=== PATIENT | male | born 1950 | race Caucasian/White ===

== ENCOUNTER → 2019-07-02 07:26 | Outpatient (CLI) | payer MEDICARE, SELFPAY ==
[2019-07-02 07:58] LABS: Add Manual Diff / Slide Review NO; Basophils Absolute Auto 100 /uL (0-100); Eosinophils Absolute Auto 100 /uL (0-450); Eosinophils Percent Auto 2.3 % (2-4); Hematocrit 43.4 % (41-53); Hemoglobin 14.8 g/dL (13.5-17.5); Lymphocytes Absolute Auto 1400 /uL (1100-4500); Mean Corpuscular HGB Conc 34.1 % (30-36); Mean Corpuscular Hemoglobin 31.2 PG (26-34); Mean Corpuscular Volume 91.4 fL (80-100); Monocytes Absolute Auto 400 /uL (0-900); Monocytes Percent Auto 8.5 % (3-14); Neutrophils Absolute Auto 3100 /uL (1500-7000); Neutrophils Percent Auto 61.2 % (50-75); Platelet Count 167 X10^3/uL (150-400); Red Blood Cell Count 4.75 X10^6/uL (4.5-5.9); Red Cell Distribution Width 13.6 % (11.6-14.8); White Blood Cell Count 5.1 X10^3/uL (4.5-11.0)
[2019-07-02 08:30] LABS: Hemoglobin A1C% w Est Avg Glu 5.1 % (4.0-6.0)
[2019-07-02 08:32] LABS: Alanine Aminotransferase 22 IU/L (<50); Albumin 4.1 g/dL (3.5-5.0); Albumin Globulin Ratio 1.5 (1.0-2.8); Alkaline Phosphatase 56 U/L (38-126); Aspartate Aminotransferase 29 IU/L (17-59); BUN Creatinine Ratio 26.3 (6-22); Bilirubin Total 0.8 mg/dL (0.2-1.3); Blood Urea Nitrogen 21 mg/dL (9-20); Calcium 9.5 mg/dL (8.4-10.2); Carbon Dioxide 30 mmol/L (22-32); Chloride 104 mmol/L (98-107); Cholesterol 161 mg/dL (140-199); Estimated Glomerular Filt Rate > 60.0 mL/min (>60); Globulin 2.8 g/dL (1.7-4.1); Glucose 95 mg/dL (80-110); HDL Cholesterol 72 mg/dL (40-60); HEMOLYSIS < 15 (0-50); LDL Cholesterol Calculated 73 mg/dL (<100); Potassium 4.2 mmol/L (3.4-5.1); Sodium 141 mmol/L (137-145); Total Protein 6.9 g/dL (6.3-8.2); Triglycerides 82 mg/dL (35-150)
[2019-07-02 09:01] LABS: Prostate Specific Antigen Scrn 2.97 ng/mL (0.1-4.0)
== END ==
PROVIDERS: Family Provider Internal Medicine; PCP Family Medicine; Referring Provider Family Medicine; Visit Provider Family Medicine
DX: Z76.89 Persons encountering health services in other specified circumstances (principal); Z12.5 Encounter for screening for malignant neoplasm of prostate
CPT/HCPCS: 36415; 80053; 80061; 83036; 85025; G0103

== ENCOUNTER → 2020-02-29 06:49 | Outpatient (CLI) | payer MEDICARE, SELFPAY ==
--- NOTE | 2020-02-29 06:50 | DI.ECHO.S_ITS ---
[facility]---------+ [facility] +---------+ : : [address] : : : : [place], [place] : : : : [id number] : : : : Phone: [phone]---------+ Echocardiogram Report + + :Name: MANUEL URIAS Study Date: 02/29/2020 Height: 69 in : :[facility] Exam Location: [facility] Weight: 160 lb : : Gender: Male BSA: 1.9 m2 : :: 1950 Age: 70 yrs BP: 142/62 mmHg: :Reason For Study: Aortic valve stenosis : : Performed By: Betty Page : + + Interpretation Summary 1) Normal left ventricular thickness, size, wall motion, and systolic function (EF 60-65%). 2) Normal right ventricular size and function. 3) Severe enlarged left atrium. 4) Moderate-severe aortic stenosis present (valve area 1.0cm2, mean gradient 33mmHg, severity ratio 0.23). 5) There is mild to moderate aortic regurgitation. 6) Compared to the Echo done 05/26/2017, aortic stenosis has progressed from moderate to moderate-severe on this study. Procedure: A two-dimensional transthoracic echocardiogram with color flow and Doppler was performed. The study quality was technically adequate. Comparison is made with the echocardiogram of 05/26/2017. The patient was in sinus bradycardia with heart rates between 47-57 bpm during the exam. Left Ventricle: The left ventricle appears normal in size, wall thickness, and systolic function without any focal wall motion abnormalities. The estimated left ventricular end diastolic volume is 137 ml. The ejection fraction is estimated to be 60-65%. Right Ventricle: The right ventricle is normal size. The right ventricular systolic function is normal. Atria: The left atrium is severely dilated. The left atrium has significantly increased in size since the prior echo exam. The right atrium is mild to moderately dilated. There is no Doppler evidence for an interatrial shunt. Mitral Valve: The mitral valve is normal in structure and function. There is mild mitral annular calcification. There is trace mitral regurgitation. Aortic Valve: There is moderate aortic valve sclerosis. The peak aortic velocity is 3.7 m/sec. The peak aortic velocity on the previous exam was 3.7 m/sec. The calculated aortic valve area is 1.0 cm2. The aortic valve mean gradient is 33.3 mmHg. The aortic valve area is 1.4 centimeters squared by planimetry. There is moderate to severe aortic stenosis. There is mild to moderate aortic regurgitation. Tricuspid Valve: The tricuspid valve is normal in structure and function. There is a trace or physiologic amount of tricuspid regurgitation. The right ventricular systolic pressure is estimated to be at least 26 mmHg based on an estimated right atrial pressure of 3 mm Hg. Pulmonic Valve: The pulmonic valve is not well seen, but is grossly normal. There is a trace or physiologic amount of pulmonic regurgitation. Great Vessels: The aortic root is normal size. The ascending aorta is at the upper limits of normal in size. The pulmonary artery is not well visualized, but is probably normal size. The IVC is of normal diameter and collapses greater than 50% with a sniff. This suggests a low right atrial pressure of 3 mm Hg. Pericardium/ Pleura There is no pericardial effusion. There is no pleural effusion. MMode/2D Measurements & Calculations LVIDd: 5.0 cm LVOT diam: 2.3 cm LVIDs: 3.0 cm Ao root diam: 3.7 cm FS: 39.2 % asc Aorta Diam: 3.8 cm IVSd: 0.87 cm LVPWd: 0.76 cm LV sibley. diameter/BSA (cm/m^2): 2.6 LV sys. diameter/BSA (cm/m^2): 1.6 LA A2 area: 33.8 cm2 RA long axis: 5.5 cm LA A4 area: 29.7 cm2 RA area: 22.1 cm2 LA length (vol): 6.0 cm RA vol: 76.1 ml LA vol: 141.0 ml RA : 40.5 ml/m2 LA vol index: 75.1 ml/m2 IVC diam: 1.8 cm RVD1 (basal): 4.8 cm TAPSE: 2.9 cm Doppler Measurements & Calculations Ao V2 max: 365.8 cm/sec LVOT Max Nitish: 94.6 cm/sec Ao V2 mean: 279.1 cm/sec LV V1 max P.6 mmHg Ao max P.5 mmHg LV V1 VTI: 22.4 cm Ao mean P.3 mmHg BOO(I,D): 0.92 cm2 Ao V2 VTI: 98.8 cm BOO(V,D): 1.0 cm2 sev ratio: 0.23 BOO indexed to BSA (cm^2/m^2): 0.49 AI P1/2t: 675.7 msec AI dec slope: 206.2 cm/sec2 MV E max nitish: 59.1 cm/sec TR max nitish: 240.6 cm/sec MV A max nitish: 89.3 cm/sec TR max P.2 mmHg MV E/A: 0.66 Med Peak E' Nitish: 5.8 cm/sec E/E' med: 10.2 Lat Peak E' Nitish: 7.7 cm/sec E/E' lat: 7.7 E/e' average: 9.0 MV P1/2t: 65.7 msec MV P1/2t max nitish: 58.5 cm/sec SV(LVOT): 90.5 ml MVA(P1/2t): 3.4 cm2 Reading Physician:10:27 AM
--- NOTE | 2020-02-29 06:50 | DI.US.S_ITS ---
PROCEDURE: US CAROTID DOPPLER BI INDICATIONS: HISTORY OF AORTIC STENOSIS AND INCREASING EXERTIONAL FATIGUE TECHNIQUE: Color and pulse Doppler interrogation was performed of both carotid systems, with image documentation and velocity measurements. COMPARISON: Outside Facility, [facility], US CAROTID DOPPLER, 08/04/2018, 15:59. FINDINGS: Stenosis calculations are based on SRU (Society of Radiologists in Ultrasound) criteria. Right side: Brachial blood pressure: 125/68 mm Hg. Common carotid artery peak systolic velocity: 77 cm/sec. Internal carotid artery peak systolic velocity: 139 cm/sec. Internal carotid artery end diastolic velocity: 35 cm/sec. External carotid artery peak systolic velocity: 61 cm/sec. ICA/CCA peak systolic ratio: 1.8 . Lai scale imaging description: Calcified atherosclerotic plaque. Percent internal carotid artery stenosis: 50-69% stenosis . Vertebral artery: Flow direction is antegrade. Left side: Brachial blood pressure: 129/63 mm Hg. Common carotid artery peak systolic velocity: 78 cm/sec. Internal carotid artery peak systolic velocity: 245 cm/sec. Internal carotid artery end diastolic velocity: 54 cm/sec. External carotid artery peak systolic velocity: 65 cm/sec. ICA/CCA peak systolic ratio: 3.1 . Lai scale imaging description: Moderate scattered plaque. Percent internal carotid artery stenosis: 70% stenosis to near occlusion . Vertebral artery: Flow direction is antegrade. IMPRESSION: 1. Stable 70% stenosis to near occlusion of the left internal carotid artery. 2. Stable 50-69% right internal carotid artery stenosis. Dictated by: Uzair DAVILA Interpreted: Douglas Salas MD on 02/29/2020 at 16:19 Approved by: Douglas Salas M.D. on 02/29/2020 at 16:40
== END ==
PROVIDERS: Family Provider Internal Medicine; PCP Family Medicine; Referring Provider Family Medicine; Visit Provider Family Medicine
DX: I35.2 Nonrheumatic aortic (valve) stenosis with insufficiency (principal); I65.23 Occlusion and stenosis of bilateral carotid arteries
CPT/HCPCS: 93306; 93880

== ENCOUNTER → 2020-05-30 07:00 | Outpatient (CLI) | payer MEDICARE, SELFPAY ==
[2020-05-30 09:24] LABS: BUN Creatinine Ratio 32.1 (6-22); Blood Urea Nitrogen 25 mg/dL (9-20); Calcium 9.4 mg/dL (8.4-10.2); Carbon Dioxide 33 mmol/L (22-32); Chloride 104 mmol/L (98-107); Estimated Glomerular Filt Rate > 60.0 mL/min (>60); Glucose 93 mg/dL (80-110); HEMOLYSIS < 15 (0-50); Potassium 4.5 mmol/L (3.4-5.1); Sodium 138 mmol/L (137-145)
== END ==
PROVIDERS: Family Provider Internal Medicine; PCP Family Medicine; Referring Provider Internal Medicine Cardiovascular Disease; Visit Provider Internal Medicine Cardiovascular Disease
DX: I10 Essential (primary) hypertension (principal)
CPT/HCPCS: 36415; 80048

== ENCOUNTER → 2020-06-02 12:42 | Outpatient (CLI) | payer MEDICARE, SELFPAY ==
--- NOTE | 2020-06-02 13:03 | DI.CT.S_ITS ---
PROCEDURE: CT ANGIO NECK INDICATIONS: Unspecified retinal vascular occlusion TECHNIQUE: After the administration of intravenous contrast, 1.5 mm axial sections acquired from the aortic arch to the [place]. Maximum intensity projection (MIP) reformats were then performed. COMPARISON: [facility], , CAROTID DOPPLER BI, 02/29/2020, 8:21. FINDINGS: Image quality: Excellent. Carotid system: The great vessels demonstrate a conventional anatomy as they arise from the aortic arch. The origins of the common carotid arteries appear patent. The common carotid arteries demonstrate normal calibers and courses. The bifurcation regions appear normal bilaterally. There is a proximal left internal carotid artery stenosis which measures 70%. There is a calcified proximal right internal carotid artery stenosis which measures approximately 50%. Posterior circulation: The origins of the vertebral arteries appear patent. The left vertebral artery is dominant. The distal vertebral artery is quite diminutive. They join to form a normal appearing basilar artery. Soft tissues: Visualized neck soft tissues demonstrate no suspicious abnormalities. Thyroid gland is unremarkable as visualized.. Bones: No suspicious bony lesions. Visualized cervical spine appears normally aligned. IMPRESSION: 1. 70% proximal left internal carotid artery stenosis. 2. Calcified proximal right internal carotid artery stenosis is approximately 50%. Any quantitative stenosis measurements were performed using the NASCET criteria. Dictated by: dAolfo Steele M.D. on 06/02/2020 at 14:12 Approved by: Adolfo Steele M.D. on 06/02/2020 at 14:29
== END ==
PROVIDERS: Family Provider Internal Medicine; PCP Family Medicine; Referring Provider Family Medicine; Visit Provider Internal Medicine Cardiovascular Disease
DX: I65.23 Occlusion and stenosis of bilateral carotid arteries (principal); H34.9 Unspecified retinal vascular occlusion
CPT/HCPCS: 70498; Q9967

== ENCOUNTER → 2020-06-11 08:47 | Outpatient (CLI) | payer MEDICARE, SELFPAY ==
[2020-06-11] MEDS: COVID-19 VACC #1, MRNA(MOD) 100 MCG/0.5 ML VIAL IM (08:51)
== END ==
PROVIDERS: Family Provider Internal Medicine; PCP Family Medicine; Visit Provider Internal Medicine
DX: Z23 Encounter for immunization (principal)
CPT/HCPCS: 0011A; 91301

== ENCOUNTER → 2020-07-09 07:43 | Outpatient (CLI) | payer MEDICARE, SELFPAY ==
[2020-07-09] MEDS: COVID-19 VACC #2, MRNA(MOD) 100 MCG/0.5 ML VIAL IM (07:47)
== END ==
PROVIDERS: Family Provider Internal Medicine; Visit Provider Internal Medicine
DX: Z23 Encounter for immunization (principal)
CPT/HCPCS: 0012A; 91301

== ENCOUNTER → 2020-09-01 10:32 | Outpatient (CLI) | payer MEDICARE, SELFPAY ==
--- NOTE | 2020-09-01 10:34 | DI.RAD.S_ITS ---
PROCEDURE: XR CHEST 2V INDICATIONS: lump chest; deformed chest TECHNIQUE: 2 views of the chest were acquired. COMPARISON: None. FINDINGS: Surgical changes and devices: None. Lungs and pleura: Lungs are clear. No pleural effusions or pneumothorax. Mediastinum: Mediastinal contours are normal. Heart size is normal. Bones and chest wall: No suspicious bony abnormalities. Soft tissues appear unremarkable. IMPRESSION: No trauma found. Depending on the clinical status follow-up by CT scanning may become necessary. Dictated by: Lexa Bell M.D. on 09/01/2020 at 12:40 Approved by: Lexa Bell M.D. on 09/01/2020 at 12:41
== END ==
PROVIDERS: Family Provider Internal Medicine; PCP Family Medicine; Referring Provider Family Medicine; Visit Provider Family Medicine
DX: R22.2 Localized swelling, mass and lump, trunk (principal)
CPT/HCPCS: 71046

== ENCOUNTER → 2020-09-02 15:47 | Outpatient (CLI) | payer MEDICARE, SELFPAY ==
--- NOTE | 2020-09-02 15:49 | DI.US.S_ITS ---
LIMITED ULTRASOUND OF LEFT BREAST: 09/02/2020 CLINICAL: Palpable left breast lump. Comparisons: Chest x-ray 09/01/2020. CT neck 06/02/2020. Color flow and real-time ultrasound of the left breast 11 o'clock region were performed. Lai scale images of the real-time examination were reviewed. No mass in the region of clinical concern. No fluid collection. No hyperemia. Palpable abnormality corresponds to left upper medial rib versus costochondral junction. IMPRESSION: NEGATIVE There is no sonographic evidence of malignancy. No mass. Exam findings were conveyed to the patient. CT of the chest or bone scan could be considered for further evaluation of the bones. This exam was interpreted at Station ID: [id number]. Electronically Signed By: Stef Waddell M.D. slc/:09/02/2020 16:19:18 letter sent: Clinical Evaluation Ultrasound BI-RADS: 1 Negative
== END ==
PROVIDERS: Family Provider Internal Medicine; PCP Family Medicine; Referring Provider Registered Nurse; Visit Provider Registered Nurse
DX: N63.22 Unspecified lump in the left breast, upper inner quadrant (principal)
CPT/HCPCS: 76642

== ENCOUNTER → 2020-09-09 11:20 | Outpatient (CLI) | payer MEDICARE, SELFPAY ==
[2020-09-09 13:02] LABS: BUN Creatinine Ratio 30.1 (6-22); Blood Urea Nitrogen 22 mg/dL (9-20); Calcium 9.9 mg/dL (8.4-10.2); Carbon Dioxide 29 mmol/L (22-32); Chloride 102 mmol/L (98-107); Estimated Glomerular Filt Rate > 60.0 mL/min (>60); Glucose 89 mg/dL (80-110); HEMOLYSIS < 15 (0-50); Potassium 4.1 mmol/L (3.4-5.1); Sodium 138 mmol/L (137-145)
[2020-09-09 13:32] LABS: Prostate Specific Antigen 5.43 ng/mL (0.10-4.00)
== END ==
PROVIDERS: Student in an Organized Health Care Education/Training Program; Family Provider Internal Medicine; PCP Family Medicine; Referring Provider Urology; Visit Provider Registered Nurse
DX: Z12.5 Encounter for screening for malignant neoplasm of prostate (principal); R22.2 Localized swelling, mass and lump, trunk
CPT/HCPCS: 36415; 80048; 84153

== ENCOUNTER → 2020-09-10 15:11 | Outpatient (CLI) | payer MEDICARE, SELFPAY ==
--- NOTE | 2020-09-10 15:12 | DI.CT.S_ITS ---
PROCEDURE: CT CHEST W CON INDICATIONS: atypical mass of chest/asymmetry TECHNIQUE: After the administration of intravenous contrast, 5 mm thick sections acquired from the pulmonary apices to the posterior costophrenic angles. 1 mm axial lung, 5 mm thick coronal and sagittal reformats and 7 mm axial MIP were acquired. For radiation dose reduction, the following was used: automated exposure control, adjustment of mA and/or kV according to patient size. COMPARISON: [facility], CR, XR CHEST 2V, 09/01/2020, 10:38. FINDINGS: Lungs: Scattered chronic calcified granulomas incidentally noted. Scattered subsegmental atelectasis and/or scarring. No focal consolidation. Pleura: No pleural effusion or pneumothorax. Heart: Heart size is normal. No pericardial effusion. Moderate coronary artery calcifications. Chest nodes: Normal. Thyroid gland: Negative Aorta: Normal. Pulmonary arteries: Normal Esophagus: Normal Upper abdomen: Subcentimeter hepatic foci are statistically cysts or hemangiomas, although technically too small to characterize accurately and therefore nonspecific. Bones: Normal. IMPRESSION: Scattered subsegmental atelectasis and/or scarring. No focal consolidation. Scattered chronic calcified granulomas incidentally noted. Moderate coronary artery atherosclerosis. Additional chronic/incidental findings as above. Dictated by: Esvin Almaguer M.D. on 09/10/2020 at 16:35 Approved by: Esvin Almaguer M.D. on 09/10/2020 at 17:09
== END ==
PROVIDERS: Family Provider Internal Medicine; PCP Family Medicine; Referring Provider Registered Nurse; Visit Provider Registered Nurse
DX: R22.2 Localized swelling, mass and lump, trunk (principal); I25.10 Atherosclerotic heart disease of native coronary artery without angina pectoris
CPT/HCPCS: 71260; Q9967

== ENCOUNTER → 2020-10-09 13:53 | Outpatient (CLI) | payer MEDICARE, SELFPAY ==
--- NOTE | 2020-10-09 13:55 | DI.RAD.S_ITS ---
PROCEDURE: XR RIBS LT MIN 3V W CXR1V INDICATIONS: chest/ribs assymetry TECHNIQUE: 2 views of the left ribs were acquired, along with a single view chest. COMPARISON: None. FINDINGS: Surgical changes and devices: None. Bones and chest wall: No fractures or dislocations. No suspicious bony lesions. Overlying soft tissues appear unremarkable. Lungs and pleura: No pleural effusions or pneumothorax. Lungs appear clear. Mediastinum: Mediastinal contours appear normal. Heart size is normal. IMPRESSION: No rib fracture radiographically identified. No acute disease. Dictated by: Esvin Almaguer M.D. on 10/09/2020 at 15:52 Approved by: Esvin Almaguer M.D. on 10/09/2020 at 15:53
== END ==
PROVIDERS: Family Provider Internal Medicine; PCP Family Medicine; Referring Provider Registered Nurse; Visit Provider Registered Nurse
DX: M95.4 Acquired deformity of chest and rib (principal)
CPT/HCPCS: 71101

== ENCOUNTER → 2020-11-24 13:12 | Outpatient (CLI) | payer MEDICARE, SELFPAY ==
[2020-11-24 15:20] LABS: COVID19 -Nasal RAPID Negative (Negative)
== END ==
PROVIDERS: Family Provider Internal Medicine; PCP Family Medicine; Visit Provider Physician Assistant
DX: Z20.822 Contact with and (suspected) exposure to COVID-19 (principal)
CPT/HCPCS: 87635; C9803

== ENCOUNTER 2020-11-25 09:59 | Day surgery (SDC) | payer MEDICARE, SELFPAY ==
[2020-11-25 10:17] VITALS: BMI 22.8
[2020-11-25] MEDS: LACTATED RINGERS 1,000 ML 100 ML IV (10:24)
[2020-11-25 10:25] VITALS: BP 146/66; PULSE 54; RESP 14; TEMP 36.2; O2SAT 100
--- NOTE | 2020-11-25 12:05 | PM.HP.1 ---
History of Present Illness History of Present Illness Date Patient Seen: 11/25/20 Time Patient Seen: 12:05 Chief complaint: DX COLONOSCOPY Narrative: Personal hx of colon polyps. Asymptomatic. Patient History Medical History Anemia (~2014) Aortic stenosis Carotid stenosis Cataracts, bilateral (~2018) Hearing loss (~2012) Rib deformity Skin lesion Swelling, mass, or lump in chest Well adult Family & Social History Family History Mother Pacemaker History of heart disease Sister Breast cancer Father Congestive heart failure Cancer Social History: household members spouse Tobacco & Substance use: Smoking Status Never smoker alcohol intake current alcohol intake frequency a few times a month Substance Use Type does not use Meds Home Medications and Allergies Home Medications Medication Instructions Recorded Confirmed Type aspirin 81 mg chewable tablet 81 mg PO QDAY #0 12/18/16 11/25/20 History atorvastatin 10 mg tablet See Rx Instructions .ROUTE 02/08/20 11/25/20 Rx .COMPLEX #90 tab hydrochlorothiazide 25 mg tablet 25 mg PO QDAY #90 tab 02/08/20 11/25/20 Rx sildenafil (pulm.hypertension) 20 See Rx Instructions PO .COMPLEX 02/08/20 11/25/20 Rx mg tablet PRN #30 tab Allergies Allergy/AdvReac Type Severity Reaction Status Date / Time No Known Drug Allergies Allergy Verified 03/05/20 08:26 Review of Systems Review of Systems ROS: Yes All systems reviewed with the patient and are negative except as otherwise documented Exam Vital Signs (past 8 hours): - 11/25/20 10:25 Temperature 97.2 F L Pulse Rate 54 L Respiratory Rate 14 Blood Pressure 146/66 H Pulse Oximetry 100 Oxygen Delivery Method Room Air Const General: cooperative and comfortable Orientation: alert HENCO Head: normocephalic Ears: external ears normal Nose: external nose normal Face and sinus: normal facial exam Mouth: oral mucosae normal Eyes General: appearance normal, both eyes and all related structures Neck Neck: normal visual inspection Chest Chest: normal inspection of the chest Resp Effort & Inspection: normal respiratory effort Auscultation: clear to auscultation bilaterally Cardio Rate: regular rate Rhythm: regular rhythm Heart Sounds: no murmurs GI Inspection: normal to inspection Palpation: soft and No tender Auscultation: normal bowel sounds Skin General: no rashes or lesions noted and No jaundice Neuro General: patient alert and moves all extremities Cognition: normal cognition Speech: speech normal Extrem General: no pedal edema Psych Appearance: grossly normal Assessment & Plan Assessment & Plan narrative: Personal hx of colon polyps. colonoscopy today.
--- NOTE | 2020-11-25 12:07 | PM.PREOP ---
Pre-operative Note COVID-19 COVID-19 status: Negative Result date/Date tested (Pos, Neg/Pending): 11/24/20 Interval Note History & Physical reviewed/Exam performed by Physician: Yes Changes to H&P: No ASA Class (for procedural sedation): II
[2020-11-25] MEDS: fentaNYL 250 MCG/5 ML INJ IV (13:12)
[2020-11-25] MEDS: MIDAZOLAM 5 MG/5 ML VIAL IV (13:15)
--- NOTE | 2020-11-25 13:31 | PM.OP.ENDO ---
Operative Date/Time/Diagnoses Date of procedure: 11/25/20 Time of procedure: 13:31 Pre-op diagnosis: colon polyps Post-op diagnosis: same Procedure & Clinicians Study performed: colonoscopy Same procedure as scheduled: Yes Indications: personal hx of colon polyps Surgeon: Hussain Phillips Procedure Notes SCOAP/Timeout: Done Procedure in detail: After the risks and benefits were explained, written and verbal informed consent was obtained. The patient was brought into the procedure room and placed into the left lateral decubitus position. Conscious sedation medication was applied as per nursing documentation. Digital rectal examination was accomplished. The scope was introduced into the patient and advanced under direct visualization to the cecum as identified by the appendiceal orifice and ileocecal valve. The scope was slowly withdrawn to carefully examine the mucosa for any defects or lesions. Comprehensive imaging was accomplished throughout the rectum including the dentate line. The colon was decompressed, the scope was then removed from the patient who tolerated the procedure well. 7mg versed, 150mcg fentanyl bowel prep: in the right colon, there was some residual brown liquid debris, however with irrigation this was rendered adequate for polyp surveillance Scope withdrawal time: 7min Sedation minutes: 27 Specimen(s): none sent Complications: none Impression: Patient had some diverticulosis in the sigmoid. The sigmoid was moderately tortuous. Navigation was thus somewhat difficult. This required application of abdominal pressure. No significant polyps mass lesions or inflammatory features identified throughout. Moderate internal hemorrhoids were noted on direct views through the dentate line. Endoscopic diagnosis 1. Diverticulosis 2. Hemorrhoids 3. Challenging navigation Post-procedure Plan for aftercare: 1. Continue to follow along and primary care as before. 2. Considering personal history of adenomatous colon polyps, repeat colonoscopy in 5 years is suggested. Disposition: PACU
[2020-11-25 13:33] VITALS: BP 108/54; PULSE 45; RESP 14; TEMP 36.5; O2SAT 100
[2020-11-25 13:38] VITALS: BP 108/54; PULSE 47; RESP 16; O2SAT 100
[2020-11-25 13:42] VITALS: BP 113/52; PULSE 49; RESP 14; O2SAT 100
[2020-11-25 14:08] VITALS: BP 114/59; PULSE 45; RESP 14; TEMP 36.5; O2SAT 100
[2020-11-25 14:25] VITALS: BP 113/58; PULSE 46; RESP 14; TEMP 36.2; O2SAT 100
--- NOTE | 2020-11-25 14:33 | SUR.PHASEII ---
1425 States that he feels ready to go home, denies light-headedness/dizziness. Tolerating PO well. States that his resting heart rate is in the 50s
--- NOTE | 2020-11-25 14:37 | SUR.PHASEII ---
Confirmed over phone call (after he left the building) that patient has his hearing aids. Malika took the phone call and this RN heard both her question and the patient's answer.
== END 2020-11-25 14:33 | disposition home or self-care (01) ==
PROVIDERS: Family Provider Internal Medicine; PCP Family Medicine; Referring Provider Internal Medicine Gastroenterology; Visit Provider Internal Medicine Gastroenterology
PROC: 0DJD8ZZ Inspection of Lower Intestinal Tract, Via Natural or Artificial Opening Endoscopic (ICD-10-PCS; CPT 45378; principal; 2020-11-25 11:00)
DX: Z12.11 Encounter for screening for malignant neoplasm of colon (principal); Z86.010 Personal history of colon polyps; K57.30 Diverticulosis of large intestine without perforation or abscess without bleeding; K64.8 Other hemorrhoids
CPT/HCPCS: G0105; J2250; J3010

== ENCOUNTER → 2021-04-27 08:12 | Outpatient (CLI) | payer MEDICARE, SELFPAY ==
[2021-04-27 09:08] LABS: Appearance Urine UA CLEAR; Bilirubin Urine UA NEGATIVE (NEGATIVE); Color Urine UA YELLOW; Glucose Urine UA NEGATIVE (Negative); Ketones Urine UA TRACE (NEGATIVE); Leukocyte Esterase Urine UA NEGATIVE (NEGATIVE); Nitrite Urine UA NEGATIVE (Negative); Occult Blood Urine UA NEGATIVE (Negative); Protein Urine UA TRACE (Negative); Specific Gravity Urine UA 1.015 (1.000-1.035); Urobilinogen Urine UA 0.2 E.U./dL (0.2)
[2021-04-27 09:35] LABS: Bacteria Urine None Seen; Culture Indicated Urine Cult Not Indicated; Mucus Urine 1+ (Negative); RBC Urine 0-1/HPF (0-5/HPF); WBC Urine 1-5/HPF (0-5/HPF)
[2021-04-27 10:14] LABS: Add Manual Diff / Slide Review NO; Basophils Absolute Auto 0 /uL (0-100); Basophils Percent Auto 0.7 % (0-2); Eosinophils Absolute Auto 100 /uL (0-450); Eosinophils Percent Auto 1.1 % (2-4); Hematocrit 39.8 % (41-53); Hemoglobin 13.6 g/dL (13.5-17.5); Lymphocytes Absolute Auto 1300 /uL (1100-4500); Lymphocytes Percent Auto 22.9 % (25-40); Mean Corpuscular HGB Conc 34.3 % (30-36); Mean Corpuscular Hemoglobin 30.6 PG (26-34); Mean Corpuscular Volume 89.3 fL (80-100); Monocytes Absolute Auto 500 /uL (0-900); Monocytes Percent Auto 8.9 % (3-14); Neutrophils Absolute Auto 3800 /uL (1500-7000); Neutrophils Percent Auto 66.4 % (50-75); Platelet Count 164 X10^3/uL (150-400); Red Blood Cell Count 4.45 X10^6/uL (4.5-5.9); Red Cell Distribution Width 13.7 % (11.6-14.8); White Blood Cell Count 5.8 X10^3/uL (4.5-11.0)
[2021-04-27 10:35] LABS: Alanine Aminotransferase 31 IU/L (<50); Albumin 4.1 g/dL (3.5-5.0); Albumin Globulin Ratio 1.5 (1.0-2.8); Alkaline Phosphatase 54 U/L (38-126); Aspartate Aminotransferase 38 IU/L (17-59); BUN Creatinine Ratio 32.1 (6-22); Bilirubin Total 0.6 mg/dL (0.2-1.3); Blood Urea Nitrogen 26 mg/dL (9-20); Calcium 9.5 mg/dL (8.4-10.2); Carbon Dioxide 34 mmol/L (22-32); Chloride 103 mmol/L (98-107); Cholesterol 141 mg/dL (140-199); Estimated Glomerular Filt Rate > 60.0 mL/min (>60); Globulin 2.7 g/dL (1.7-4.1); Glucose 84 mg/dL (80-110); HDL Cholesterol 73 mg/dL (40-60); HEMOLYSIS < 15 (0-50); LDL Cholesterol Calculated 41 mg/dL (<100); Potassium 4.1 mmol/L (3.4-5.1); Sodium 140 mmol/L (137-145); Total Protein 6.8 g/dL (6.3-8.2); Triglycerides 135 mg/dL (35-150)
[2021-04-27 11:02] LABS: Prostate Specific Antigen Scrn 3.82 ng/mL (0.1-4.0)
== END ==
PROVIDERS: Family Provider Internal Medicine; PCP Family Medicine; Referring Provider Internal Medicine Cardiovascular Disease; Visit Provider Internal Medicine Cardiovascular Disease
DX: I10 Essential (primary) hypertension (principal); Z12.5 Encounter for screening for malignant neoplasm of prostate; R97.20 Elevated prostate specific antigen [PSA]
CPT/HCPCS: 36415; 80053; 80061; 81001; 85025; G0103

== ENCOUNTER → 2021-05-05 13:45 | Outpatient (CLI) | payer MEDICARE, SELFPAY ==
--- NOTE | 2021-05-05 | DI.ECHO.S_ITS ---
[facility]---------+ [facility] +---------+ : : [address] : : : : [place] : : : : [id number] : : : : Phone: [phone] +---------+ Echocardiogram Report + + :Name: MANUEL URIAS Study Date: 05/05/2021 Height: 68 in : :[facility] ReadingLocation: Weight: 150 lb : : Gender: Male BSA: 1.8 m2 : :: 1950 Age: 71 yrs BP: 144/66 mmHg: :Reason For Study: AORTIC STENOSIS : :Ordering Physician: ILDA, : :JAYA Performed By: Evangelina Santizo : :Referring: JAYA HOYOS : + + Interpretation Summary 1) Normal left ventricular thickness, size, wall motion, and systolic function (EF 60-65%). 2) Normal right ventricular size and function. 3) Severe enlarged left atrium. 4) Severe aortic stenosis present (valve area 0.9cm2, mean gradient 45mmHg, severity ratio 0.20). 5) There is mild to moderate aortic regurgitation. 6) Compared to the Echo done 02/29/2020, aortic stenosis has progressed from moderate-severe to severe on this study. Procedure: A two-dimensional transthoracic echocardiogram with color flow and Doppler was performed. The study quality was technically adequate. Comparison is made with the echocardiogram of 02/29/2020. The patient was in sinus bradycardia with heart rates between 48-71 bpm during the exam. Left Ventricle: The left ventricle is normal in size and wall thickness. The ejection fraction is estimated to be 60-65%. Left ventricular systolic function appears normal without focal wall motion abnormalities. Right Ventricle: The right ventricle is normal in size and function. Atria: The left atrium is severely dilated. The right atrium is mildly dilated. There is no Doppler evidence for an interatrial shunt. Mitral Valve: The mitral valve is normal in structure and function. There is mild mitral regurgitation. Aortic Valve: The aortic valve is severely calcified. There is severe aortic stenosis. The peak aortic velocity is 4.37 m/sec. The aortic valve mean gradient is 45 mmHg. The calculated aortic valve area is .98 cm2. There is mild to moderate aortic regurgitation. Tricuspid Valve: The tricuspid valve is normal in structure and function. There is mild tricuspid regurgitation. Pulmonic Valve: The pulmonic valve leaflets are thin and pliable; valve motion is normal. There is mild pulmonic regurgitation. Great Vessels: The dimensions of the ascending aorta are normal. The IVC is of normal diameter and collapses greater than 50% with a sniff. This suggests a low right atrial pressure of 3 mm Hg. Pericardium/ Pleura There is no pericardial effusion. There is no pleural effusion. MMode/2D Measurements & Calculations LVIDd: 4.8 cm LVOT diam: 2.4 cm LVIDs: 2.9 cm asc Aorta Diam: 3.2 cm FS: 40.5 % Ao Arch Diam (Prox Trans): 2.5 cm IVSd: 1.00 cm LVPWd: 0.99 cm LV sibley. diameter/BSA (cm/m^2): 2.7 LV sys. diameter/BSA (cm/m^2): 1.6 LA A2 area: 27.7 cm2 RA long axis: 6.1 cm LA A4 area: 25.3 cm2 RA area: 21.5 cm2 LA length (vol): 5.7 cm RA vol: 64.4 ml LA vol: 105.0 ml RA : 35.6 ml/m2 LA vol index: 58.0 ml/m2 IVC diam: 1.2 cm RVD1 (basal): 4.0 cm TAPSE: 2.9 cm Doppler Measurements & Calculations Ao V2 max: 437.8 cm/sec LVOT Max Nitish: 93.2 cm/sec Ao V2 mean: 316.4 cm/sec LV V1 max P.5 mmHg Ao max P.3 mmHg LV V1 VTI: 22.7 cm Ao mean P.0 mmHg BOO(I,D): 0.93 cm2 Ao V2 VTI: 112.0 cm BOO(V,D): 0.98 cm2 sev ratio: 0.20 BOO indexed to BSA (cm^2/m^2): 0.52 MV E max nitish: 88.3 cm/sec TR max nitish: 251.1 cm/sec MV A max nitish: 88.3 cm/sec TR max P.2 mmHg MV E/A: 1.0 PA V2 max: 91.7 cm/sec Med Peak E' Nitish: 8.2 cm/sec PA V2 mean: 65.0 cm/sec E/E' med: 10.7 PA mean P.9 mmHg Lat Peak E' Nitish: 7.9 cm/sec PA pr(Accel): 24.2 mmHg E/E' lat: 11.1 E/e' average: 10.9 MV dec time: 0.24 sec SV(LVOT): 104.4 ml Reading Physician:11:22 AM
== END ==
PROVIDERS: Family Provider Internal Medicine; PCP Family Medicine; Referring Provider Internal Medicine Cardiovascular Disease; Visit Provider Internal Medicine Cardiovascular Disease
DX: I08.3 Combined rheumatic disorders of mitral, aortic and tricuspid valves
CPT/HCPCS: 93306

== ENCOUNTER → 2021-07-03 09:21 | Outpatient (CLI) | payer MEDICARE, SELFPAY ==
[2021-07-03 12:32] LABS: Prostate Specific Antigen 2.81 ng/mL (0.10-4.00)
== END ==
PROVIDERS: Family Provider Internal Medicine; PCP Family Medicine; Referring Provider Specialist; Visit Provider Specialist
DX: R97.20 Elevated prostate specific antigen [PSA] (principal)
CPT/HCPCS: 36415; 84153

== ENCOUNTER 2021-11-28 20:30 | Emergency (ER) | payer MEDICARE, SELFPAY ==
[2021-11-28 20:34] VITALS: BP 200/82; PULSE 57; RESP 18; O2SAT 56; BMI 22.8
--- NOTE | 2021-11-28 23:20 | ED.FALL ---
HPI - Fall General Chief Complaint: Fall Stated Complaint: GLF landed on head and nose, NO thinners Time Seen by Provider: 11/28/21 23:20 Source: patient Mode of arrival: Ambulatory History of Present Illness HPI Narrative: 71-year-old gentleman with a history of hypertension was watching his grandson began to stumble so he stepped forward to break the child's fall and ended up losing his balance and crashing forward into a pole along the doc. Has minor stacking the left side of his forehead a contusion to the right side of his forehead and abrasion to the mid nose. He did not have any epistaxis. He did not lose consciousness. Notes that he is beginning to have some tightening all over but no specific musculoskeletal pain otherwise. He comes in because the nasal abrasion was bleeding after number of hours. He is not on any blood thinners. He reports no recent headaches, fevers, cough, chills, abdominal pain, vomiting, diarrhea, chest pain, palpitations or shortness of breath. Related Data Home Medications Medication Instructions Recorded Confirmed aspirin 81 mg chewable tablet 81 mg PO QDAY ##0 12/18/16 05/20/21 rosuvastatin 40 mg tablet 40 mg PO DAILY 05/20/21 05/20/21 Previous Rx's Medication Instructions Recorded sildenafil (pulm.hypertension) 20 See Rx Instructions PO .COMPLEX 02/07/20 mg tablet PRN sexual activity #30 tabs hydrochlorothiazide 25 mg tablet 25 mg PO QDAY #90 tabs 04/08/21 alfuzosin 10 mg tablet,extended 10 mg PO DAILY #90 tabs 05/20/21 release 24 hr (Uroxatral) Allergies Allergy/AdvReac Type Severity Reaction Status Date / Time No Known Drug Allergies Allergy Verified 05/20/21 15:02 Review of Systems Review of Systems Narrative: Remainder of complete review of systems is otherwise unremarkable except for that included in the HPI. Patient History Medical History (Updated 11/28/21 @ 23:37 by Rosalba Kinney MD) Anemia (~2014) Aortic stenosis BPH w urinary obs/LUTS Carotid stenosis Cataracts, bilateral (~2018) Elevated PSA Erectile dysfunction Hearing loss (~2012) History of elevated PSA Peyronie disease Rib deformity Right inguinal hernia Skin lesion Swelling, mass, or lump in chest Well adult Family History Mother Pacemaker History of heart disease Hypertension Sister Breast cancer Father Congestive heart failure Cancer Hypertension Brother Hypertension Social History marital status: household members: spouse Smoking Status: Never smoker alcohol intake: current substance use type: does not use Smoking Status: Never smoker alcohol intake frequency: a few times a month Substance Use Type: does not use Exam Initial Vital Signs Initial Vital Signs: Vital Signs Pulse Rate 57 L 11/28/21 20:34 Respiratory Rate 18 11/28/21 20:34 Blood Pressure 200/82 H 11/28/21 20:34 Pulse Oximetry 56 L 11/28/21 20:34 Oxygen Delivery Method 11/28/21 20:34 General: Healthy appearing, in no acute distress. Able to give a complete and coherent history. Well-nourished well-developed HEENT: Moist mucous membranes, normal sclera with reactive pupils, abrasion to the left side of the forehead, contusion to the right side of the forehead, abrasion and contusion to the nose. No obvious nasal fracture or septal hematoma. Neck: No cervical spine tenderness on palpation, supple Respiratory: Lungs are clear to auscultation, no wheezing no rales no rhonchi. Full and symmetrical air movement Cardiac: Regular rate and rhythm no murmurs no bruits Abdomen: Soft, nontender, good bowel tones, no flank pain Skin: Warm and dry, no rashes Neurologic: Grossly neurologically intact with no obvious asymmetries or abnormalities Extremities: No trauma, well perfused Psych: Cooperative, appropriate insight and affect Course Vital Signs Vital signs: Vital Signs - 8 hr 11/28/21 20:34 Pulse Rate 57 L Respiratory Rate 18 Blood Pressure 200/82 H Pulse Oximetry 56 L Oxygen Delivery Method Room Air MDM - Fall MDM Narrative Medical decision making narrative: A 71-year-old gentleman with fall landing into a piling with abrasion to the mid face. No obvious nasal fracture frontal sinus fracture, loss of consciousness no indication for CT scan, the abrasion over the nose has finally stop bleeding. Reassurance is given reviewed anticipated course of resolution of symptoms including increasing pain in multiple spots tomorrow. Questions are answered and he is safe for home discharge Discharge Plan Departure Patient Disposition: Home Clinical Impression: Fall, Contusion of nose, Contusion of forehead Activity Restrictions/Additional Instructions: Thank you for coming in today Fortunately, with the description of your fall and your clinical exam, there is no indication for a CT scan tonight. The small abrasion on your forehead is going to heal nicely. The larger abrasion over your nose has finally stopped bleeding. There is no indication of a septal hematoma underneath. There is not actually any cut that would require stitches. Please keep the area covered with antibiotic ointment and a Band-Aid until it is clearly healing well. Using 400 mg of ibuprofen (2 [id number] pills) and 1 Tylenol every 6 hours can be very helpful in controlling pain. If you find that you are getting worse or develop any new symptoms, please feel free to return to the emergency department for further evaluation. Prescriptions: No Action aspirin 81 MG tablet,chewable 81 mg PO QDAY Qty: 0 sildenafil (pulm.hypertension) 20 mg tablet See Rx Instructions PO .COMPLEX PRN (Reason: sexual activity) Qty: 30 1RF Rx Instructions: 1-2 tablets PO 30 minutes prior to sexual activity PRN; hydrochlorothiazide 25 mg tablet 25 mg PO QDAY Qty: 90 3RF Rx Instructions: MUST BE SEEN FOR FURTHER REFILLS. THANK YOU! 01/13/21 rosuvastatin 40 mg tablet 40 mg PO DAILY alfuzosin [Uroxatral] 10 mg tablet extended release 24 hr 10 mg PO DAILY Qty: 90 3RF Rx Instructions: administer after the same meal each day Referrals: Michael Bateman, DO [Primary Care Provider] -
[2021-11-28] MEDS: ACETAMINOPHEN 325 MG TABLET PO (23:42)
[2021-11-28] MEDS: IBUPROFEN 400 MG TABLET PO (23:42)
== END 2021-11-28 23:46 | disposition home or self-care (01) ==
PROVIDERS: Emergency Provider Emergency Medicine; Family Provider Internal Medicine; PCP Family Medicine
DX: S00.33XA Contusion of nose, initial encounter (principal); S00.83XA Contusion of other part of head, initial encounter; W19.XXXA Unspecified fall, initial encounter
CPT/HCPCS: 99282; 99283

== ENCOUNTER → 2022-01-13 06:47 | Outpatient (CLI) | payer MEDICARE, SELFPAY ==
[2022-01-13 08:52] LABS: Add Manual Diff / Slide Review NO; Basophils Absolute Auto 0 /uL (0-100); Basophils Percent Auto 0.9 % (0-2); Eosinophils Absolute Auto 100 /uL (0-450); Eosinophils Percent Auto 2.6 % (2-4); Hematocrit 40.3 % (41-53); Hemoglobin 13.8 g/dL (13.5-17.5); Lymphocytes Absolute Auto 1400 /uL (1100-4500); Mean Corpuscular HGB Conc 34.1 % (30-36); Mean Corpuscular Hemoglobin 30.6 PG (26-34); Mean Corpuscular Volume 89.6 fL (80-100); Monocytes Absolute Auto 500 /uL (0-900); Monocytes Percent Auto 10.2 % (3-14); Neutrophils Absolute Auto 2600 /uL (1500-7000); Neutrophils Percent Auto 55.3 % (50-75); Platelet Count 152 X10^3/uL (150-400); Red Cell Distribution Width 13.7 % (11.6-14.8); White Blood Cell Count 4.6 X10^3/uL (4.5-11.0)
[2022-01-13 09:08] LABS: Alanine Aminotransferase 25 IU/L (<50); Albumin 3.7 g/dL (3.5-5.0); Albumin Globulin Ratio 1.5 (1.0-2.8); Alkaline Phosphatase 60 U/L (38-126); Aspartate Aminotransferase 33 IU/L (17-59); BUN Creatinine Ratio 26.7 (6-22); Bilirubin Total 0.7 mg/dL (0.2-1.3); Blood Urea Nitrogen 20 mg/dL (9-20); Calcium 8.8 mg/dL (8.4-10.2); Carbon Dioxide 33 mmol/L (22-32); Chloride 105 mmol/L (98-107); Cholesterol 134 mg/dL (140-199); Estimated Glomerular Filt Rate > 60 mL/min (>60); Globulin 2.5 g/dL (1.7-4.1); Glucose 80 mg/dL (80-110); HDL Cholesterol 68 mg/dL (40-60); HEMOLYSIS < 15 (0-50); LDL Cholesterol Calculated 48 mg/dL (<100); Potassium 4.4 mmol/L (3.4-5.1); Sodium 139 mmol/L (137-145); Total Protein 6.2 g/dL (6.3-8.2); Triglycerides 89 mg/dL (35-150)
[2022-01-13 09:35] LABS: Prostate Specific Antigen Scrn 3.57 ng/mL (0.1-4.0)
== END ==
PROVIDERS: Family Provider Internal Medicine; PCP Family Medicine; Referring Provider Family Medicine; Visit Provider Family Medicine
DX: Z12.5 Encounter for screening for malignant neoplasm of prostate (principal); Z80.0 Family history of malignant neoplasm of digestive organs
CPT/HCPCS: 36415; 80053; 80061; 85025; G0103

== ENCOUNTER → 2022-01-29 07:46 | Outpatient (CLI) | payer MEDICARE, SELFPAY ==
--- NOTE | 2022-01-29 | DI.MRI.S_ITS ---
PROCEDURE: MR ABDOMEN WO CON INDICATIONS: FAMILY HX PANCREATIC CANCER/BRCA2 GENE POSITIVE TECHNIQUE: Coronal HASTE through the abdomen, axial 2-D FLASH in- and [id number], and breath-hold T2 FSE with fat saturation through the biliary system and pancreas. Oblique coronal and axial thin-slice HASTE, radial thick-slab HASTE centered on the extrahepatic bile ducts. Intravenous secretin: Not requested. COMPARISON: None. FINDINGS: Image quality: Excellent. Pancreas and biliary system: Intra- and extra-hepatic biliary ducts are non dilated. Pancreas is normal in morphology, without adjacent soft tissue edema. Pancreatic duct is normal in caliber, without developmental anomalies. Gallbladder demonstrates normal wall thickness and no intrinsic hypointensities to suggest stone or sludge. . Other solid organs: Liver is normal in size. Scattered small circumscribed thin-walled T2 hyperintensities are seen in the liver compatible with simple cysts. Spleen is normal in size. 1.0 cm subcapsular posterior cyst. No adrenal nodules. Both kidneys are normal in size, without hydronephrosis. Occasional subcentimeter cysts in each kidney. Nodes and vessels: No retroperitoneal or mesenteric adenopathy by size criteria. Aorta and inferior vena cava are normal in size. Bowel and peritoneum: Unenhanced bowel loops are normal in caliber. No free fluid. Lung bases: No basal pleural effusions. Heart size is normal. Bones and soft tissues: No ventral hernias. Bone marrow is of normal overall signal. IMPRESSION: 1. No suspicious abnormalities. 2. Occasional small hepatic, splenic, and renal cysts. Dictated by: Soy Ramirez M.D. on 01/29/2022 at 10:42 Approved by: Soy Raimrez M.D. on 01/29/2022 at 10:48
== END ==
PROVIDERS: Family Provider Internal Medicine; PCP Family Medicine; Referring Provider Internal Medicine Gastroenterology; Visit Provider Internal Medicine Gastroenterology
DX: N28.1 Cyst of kidney, acquired (principal); K76.89 Other specified diseases of liver; Z15.01 Genetic susceptibility to malignant neoplasm of breast; Z80.0 Family history of malignant neoplasm of digestive organs; D73.4 Cyst of spleen
CPT/HCPCS: 74181

== ENCOUNTER → 2022-05-21 08:58 | Outpatient (CLI) | payer MEDICARE, SELFPAY ==
[2022-05-21 09:26] LABS: Add Manual Diff / Slide Review NO; Basophils Absolute Auto 0 /uL (0-100); Basophils Percent Auto 0.9 % (0-2); Eosinophils Absolute Auto 100 /uL (0-450); Eosinophils Percent Auto 1.4 % (2-4); Hematocrit 40.1 % (41-53); Hemoglobin 13.4 g/dL (13.5-17.5); Lymphocytes Absolute Auto 1200 /uL (1100-4500); Lymphocytes Percent Auto 23.6 % (25-40); Mean Corpuscular HGB Conc 33.4 % (30-36); Mean Corpuscular Volume 89.9 fL (80-100); Monocytes Absolute Auto 500 /uL (0-900); Monocytes Percent Auto 10.8 % (3-14); Neutrophils Absolute Auto 3200 /uL (1500-7000); Neutrophils Percent Auto 63.3 % (50-75); Platelet Count 167 X10^3/uL (150-400); Red Blood Cell Count 4.46 X10^6/uL (4.5-5.9)
[2022-05-21 10:00] LABS: BUN Creatinine Ratio 28.4 (6-22); Blood Urea Nitrogen 21 mg/dL (9-20); Calcium 9.2 mg/dL (8.4-10.2); Carbon Dioxide 32 mmol/L (22-32); Chloride 100 mmol/L (98-107); Cholesterol 147 mg/dL (140-199); Estimated Glomerular Filt Rate > 60 mL/min (>60); Glucose 83 mg/dL (80-110); HDL Cholesterol 78 mg/dL (40-60); HEMOLYSIS < 15 (0-50); LDL Cholesterol Calculated 49 mg/dL (<100); Potassium 4.2 mmol/L (3.4-5.1); Sodium 138 mmol/L (137-145); Triglycerides 99 mg/dL (35-150)
== END ==
PROVIDERS: Family Provider Internal Medicine; PCP Family Medicine; Referring Provider Internal Medicine Cardiovascular Disease; Visit Provider Internal Medicine Cardiovascular Disease
DX: E78.5 Hyperlipidemia, unspecified (principal); I10 Essential (primary) hypertension
CPT/HCPCS: 36415; 80048; 80061; 85025

== ENCOUNTER → 2022-06-02 12:28 | Outpatient (CLI) | payer MEDICARE, SELFPAY ==
--- NOTE | 2022-06-02 | DI.ECHO.S_ITS ---
[facility] +---------+ : : [address] : [place] : : : : [id number] : : : : Phone: [phone]+ Echocardiogram Report + + :Name: MANUEL URIAS Study Date: 06/02/2022 Height: 68 in : :[facility] ReadingLocation: Weight: 150 lb : : Gender: Male BSA: 1.8 m2 : :: 1950 Age: 72 yrs BP: 142/77 mmHg: :Reason For Study: AORTIC STENOSIS : :Ordering Physician: ILDA, : :JAYA Performed By: Evangelina Santizo : :Referring: JAYA HOYOS : + + Interpretation Summary 1) Mildly increased left ventricular thickness (concentric) with normal size, normal wall motion, and normal systolic function (EF 60-65%). 2) Normal right ventricular size and function. 3) Severe aortic stenosis present (valve area 0.9cm2, mean gradient 47mmHg, severity ratio 0.20). 4) There is mild aortic regurgitation. 5) Compared to the Echo done 05/05/2021, aortic regurgitation has improved from mild-moderate to mild on this study. Procedure: A two-dimensional transthoracic echocardiogram with color flow and Doppler was performed. The study quality was technically good. Comparison is made with the echocardiogram of 05/05/2021. The patient was in sinus bradycardia with heart rates between 49-55 bpm during the exam. Left Ventricle: The left ventricle is normal in size. There is mild concentric left ventricular hypertrophy. The ejection fraction is estimated to be 60-65%. Left ventricular systolic function appears normal without focal wall motion abnormalities. Diastolic parameters suggest a relaxation abnormality of the left ventricle, consistent with probable normal filling pressures. Right Ventricle: The right ventricle is normal in size and function. Atria: The left atrium is moderately dilated. Right atrial size is normal. There is no Doppler evidence for an interatrial shunt. Mitral Valve: The mitral valve leaflets appear mildly thickened, but open well. There is mild mitral regurgitation. Aortic Valve: The aortic valve is severely calcified. There is severe aortic stenosis. The peak aortic velocity is 4.21 m/sec. The aortic valve mean gradient is 47 mmHg. The calculated aortic valve area is 0.89 cm2. There is mild aortic regurgitation. Tricuspid Valve: The tricuspid valve is normal in structure and function. The right ventricular systolic pressure is estimated to be at least 19 mmHg based on an estimated right atrial pressure of 3 mm Hg. There is mild tricuspid regurgitation. Pulmonic Valve: The pulmonic valve is not well visualized. There is mild pulmonic regurgitation. Great Vessels: The aortic root is normal size. The dimensions of the ascending aorta are normal. The IVC is of normal diameter and collapses greater than 50% with a sniff. This suggests a low right atrial pressure of 3 mm Hg. Pericardium/ Pleura There is no pericardial effusion. There is no pleural effusion. MMode/2D Measurements & Calculations LVIDd: 4.6 cm LVOT diam: 2.4 cm LVIDs: 3.0 cm Ao root diam: 3.6 cm FS: 34.6 % asc Aorta Diam: 3.6 cm IVSd: 1.2 cm Ao Arch Diam (Prox Trans): 2.7 cm LVPWd: 1.0 cm LV sibley. diameter/BSA (cm/m^2): 2.6 LV sys. diameter/BSA (cm/m^2): 1.7 LA A2 area: 25.6 cm2 RA long axis: 6.1 cm LA A4 area: 22.0 cm2 RA area: 18.5 cm2 LA length (vol): 5.5 cm RA vol: 48.1 ml LA vol: 86.6 ml RA : 26.6 ml/m2 LA vol index: 47.9 ml/m2 IVC diam: 1.1 cm RVD1 (basal): 3.6 cm RVD2 (mid): 3.5 cm TAPSE: 3.5 cm Doppler Measurements & Calculations Ao V2 max: 421.8 cm/sec LVOT Max Nitish: 85.4 cm/sec Ao V2 mean: 311.2 cm/sec LV V1 max P.9 mmHg Ao max P.2 mmHg LV V1 VTI: 23.2 cm Ao mean P.3 mmHg BOO(I,D): 0.89 cm2 Ao V2 VTI: 114.4 cm BOO(V,D): 0.89 cm2 sev ratio: 0.20 BOO indexed to BSA (cm^2/m^2): 0.49 MV E max nitish: 78.7 cm/sec TR max nitish: 199.8 cm/sec MV A max nitish: 92.6 cm/sec TR max P.0 mmHg MV E/A: 0.85 PA V2 max: 105.0 cm/sec Med Peak E' Nitish: 7.1 cm/sec PA V2 mean: 69.7 cm/sec E/E' med: 11.2 PA mean P.3 mmHg Lat Peak E' Nitish: 9.3 cm/sec PA pr(Accel): 15.6 mmHg E/E' lat: 8.5 E/e' average: 9.8 MV dec time: 0.18 sec SV(LVOT): 101.4 ml Reading Physician:11:30 AM
== END ==
PROVIDERS: Family Provider Internal Medicine; PCP Family Medicine; Referring Provider Internal Medicine Cardiovascular Disease; Visit Provider Internal Medicine Cardiovascular Disease
DX: I08.3 Combined rheumatic disorders of mitral, aortic and tricuspid valves (principal)
CPT/HCPCS: 93306

== ENCOUNTER → 2022-07-05 07:42 | Outpatient (CLI) | payer MEDICARE, SELFPAY ==
[2022-07-05 08:25] LABS: Estimated Glomerular Filt Rate > 60 mL/min (>60)
== END ==
PROVIDERS: Radiology Diagnostic Radiology; Family Provider Internal Medicine; PCP Family Medicine; Referring Provider Internal Medicine Cardiovascular Disease; Visit Provider Internal Medicine Cardiovascular Disease
DX: I65.22 Occlusion and stenosis of left carotid artery (principal)
CPT/HCPCS: 36415; 82565

== ENCOUNTER → 2022-07-06 12:44 | Outpatient (CLI) | payer MEDICARE, SELFPAY ==
--- NOTE | 2022-07-06 12:46 | DI.CT.S_ITS ---
PROCEDURE: CT ANGIO NECK INDICATIONS: Occlusion and stenosis of left carotid artery TECHNIQUE: After the administration of intravenous contrast, 1.5 mm axial sections acquired from the aortic arch to the [place] of [place]. Maximum intensity projection (MIP) reformats were then performed. COMPARISON: [facility], CT, CT ANGIO NECK, 06/02/2020, 13:02. FINDINGS: Image quality: Excellent. Carotid system: The great vessels demonstrate a conventional anatomy as they arise from the aortic arch. The origins of the common carotid arteries appear patent. The common carotid arteries demonstrate normal calibers and courses. The bifurcation regions demonstrate atherosclerotic irregularity and calcification, approximately 50% narrowing on the right. On the left, there is 70-80% narrowing, with a long segment stenosis. Posterior circulation: The origins of the vertebral arteries appear patent. The more superior portions of the vertebral arteries demonstrate normal course and caliber. The left V4 segment is within normal limits. The right V4 segment largely terminates in the right posterior inferior cerebellar artery. There is a normal appearing basilar artery. The left vertebral artery is dominant to the right. Soft tissues: Visualized neck soft tissues demonstrate no suspicious abnormalities. Thyroid gland demonstrates no significant abnormality. Bones: No suspicious bony lesions. Visualized cervical spine appears normally aligned. Cervical spine degenerative changes are seen, including at least moderate disc space narrowing at C5-C6. IMPRESSION: Bilateral proximal carotid stenoses are seen, left worse than right. These are similar to 202. Any quantitative stenosis measurements were performed using the NASCET criteria. Dictated by: Schuyler Nam M.D. on 07/06/2022 at 12:16 Approved by: Schuyler Nam M.D. on 07/06/2022 at 12:19
== END ==
PROVIDERS: Family Provider Internal Medicine; PCP Family Medicine; Referring Provider Internal Medicine Cardiovascular Disease; Visit Provider Internal Medicine Cardiovascular Disease
DX: I65.23 Occlusion and stenosis of bilateral carotid arteries (principal)
CPT/HCPCS: 70498; Q9967

== ENCOUNTER → 2022-09-27 16:12 | Outpatient (CLI) | payer MEDICARE, SELFPAY ==
--- NOTE | 2022-09-27 16:14 | DI.RAD.S_ITS ---
PROCEDURE: XR CHEST 2V INDICATIONS: Cough, wheezing and night sweats TECHNIQUE: 2 views of the chest were acquired. COMPARISON: [facility], CR, XR CHEST 2V, 09/01/2020, 10:38. FINDINGS: Surgical changes and devices: None. Lungs and pleura: Lungs are clear. No pleural effusions or pneumothorax. Mediastinum: Mediastinal contours are normal. Heart size is normal. Bones and chest wall: No suspicious bony abnormalities. Soft tissues appear unremarkable. IMPRESSION: No acute cardiopulmonary process. Dictated by: Bill Sen M.D. on 09/27/2022 at 16:47 Approved by: Bill Sen M.D. on 09/27/2022 at 16:47
== END ==
PROVIDERS: Family Provider Internal Medicine; PCP Family Medicine; Referring Provider Registered Nurse; Visit Provider Registered Nurse
DX: R05.9 Cough, unspecified (principal)
CPT/HCPCS: 71046